=== PATIENT | male | born 1995 | race Caucasian/White ===

== ENCOUNTER 2018-07-28 08:53 | Emergency (ER) | payer OTHER ==
[2018-07-28 09:00] VITALS: BP 115/81
--- NOTE | 2018-07-28 11:58 | ED ---
Skin Complaint - HPI Summary HPI Summary: Patient is a 23-year-old otherwise healthy male presenting to the ED with tick bite. He endorses a tick bite to the posterior knee. He noticed the tick this morning. He states he was walking in [place], which is where this probably occurred, but did not notice this at the time. He has never had a tick bite and states he did not know how to remove this. He denies any pain. Ears small amount of erythema around the tick bite, no erythema migrans rash. No fevers, sweats, chills. - History of Current Complaint Chief Complaint: EDExtremityLower Time Seen by Provider: 07/28/18 09:15 Stated Complaint: TICK BEHIND KNEE PER PT Hx Obtained From: Patient Onset/Duration: Started Hours Ago Skin Exposure Onset/Duration: Hours Ago Timing: Constant Onset Severity: Mild Current Severity: None Pain Intensity: 0 Pain Scale Used: 0-10 Numeric Skin Location: Other: - right posteior knee Aggravating Symptom(s): Nothing Alleviating Symptom(s): Nothing Associated Signs & Symptoms: Negative Related History: Insect Bite/Sting - Allergy/Home Medications Allergies/Adverse Reactions: Allergies Allergy/AdvReac Type Severity Reaction Status Date / Time No Known Allergies Allergy Verified 07/28/18 09:00 Home Medications: Home Medications NK [No Home Medications Reported] 07/28/18 [History Confirmed 07/28/18] PMH/Surg Hx/FS Hx/Imm Hx Previously Healthy: Yes - Immunization History Hx Pertussis Vaccination: No Immunizations Up to Date: Yes Infectious Disease History: No Infectious Disease History: Denies: Traveled Outside the [place] in Last 30 Days - Social History Occupation: Employed Full-time Lives: With Family Alcohol Use: Occasionally Hx Substance Use: Yes Substance Use Type: Reports: Marijuana Hx Tobacco Use: No Smoking Status (MU): Never Smoked Tobacco Review of Systems Constitutional: Negative Negative: Fever, Chills, Fatigue, Skin Diaphoresis Negative: Blurred Vision, Diplopia Negative: Dental Pain Negative: Chest Pain Negative: Shortness Of Breath, Cough Negative: Myalgia Positive: Other - small tick to posterior knee Negative: Headache, Weakness Psychological: Normal All Other Systems Reviewed And Are Negative: Yes Physical Exam Triage Information Reviewed: Yes Vital Signs On Initial Exam: Initial Vitals Temp Pulse Resp BP Pulse Ox 97.8 F 61 15 115/81 98 07/28/18 08:56 07/28/18 08:56 07/28/18 08:56 07/28/18 08:56 07/28/18 08:56 Vital Signs Reviewed: Yes Appearance: Positive: No Pain Distress, Well-Nourished Skin: Positive: Skin Color Reflects Adequate Perfusion, Other - posterior knee tick attached Head/Face: Positive: Normal Head/Face Inspection Eyes: Positive: EOMI, Conjunctiva Clear Respiratory/Lung Sounds: Positive: Breath Sounds Present Cardiovascular: Positive: RRR Musculoskeletal: Positive: Strength/ROM Intact Neurological: Positive: Speech Normal AVPU Assessment: Alert Diagnostics - Vital Signs Vital Signs Temp Pulse Resp BP Pulse Ox 07/28/18 09:33 97.8 F 61 15 115/81 98 07/28/18 08:56 97.8 F 61 15 115/81 98 - Laboratory Lab Statement: Any lab studies that have been ordered have been reviewed, and results considered in the medical decision making process. Course/Dx - Course Course Of Treatment: Patient arrives with a tick bite to the right posterior leg. There is a small amount of erythema around the area. There is no erythema migrans. Denies any fevers, sweats, chills. Maggi dish soap with cottonball released tick. Nothing further at this time. Tick was not engorged and not attached for more than 36 hours. Prophylactic treatment is not recommended. - Diagnoses Provider Diagnoses: Tick bite Discharge - Sign-Out/Discharge Documenting (check all that apply): Patient Departure Patient Received Moderate/Deep Sedation with Procedure: No - Discharge Plan Condition: Stable Disposition: HOME Patient Education Materials: Tick Bite (ED) Referrals: No Primary Care Phys,NOPCP [Primary Care Provider] - Additional Instructions: Tick Bite: Approach to prophylaxis : According to the Infect[employer] Society of [place] (IDSA) guidelines that recommend antibiotic prophylaxis only in patients who meet all of the following criteria: 1. Attached tick identified as an adult or nymphal I. scapularis tick (deer tick). 2. Tick is estimated to have been attached for 36 hours (by degree of engorgement or time of exposure). 3. Prophylaxis is begun within 72 hours of tick removal. Local rate of infection of ticks with B. burgdorferi is 20 percent if attached for over 48 hours (these rates of infection have been shown to occur in parts of [place], parts of the [place], and parts of [place] and [place]). If you experience a tick and time of attachment is believed to be less than 36 hours, you may remove the tick with head intact and no need for prophylaxis. If over 36 hours, please come into UC or the ED. Prophylactic doxycycline is not recommended for ticks attached less than 36 hours or for those which are not engorged. - Billing Disposition and Condition Condition: STABLE Disposition: Home
== END 2018-07-28 09:33 | disposition home or self-care (01) ==
LOC: ED 08:53
DX: S80.261A Insect bite (nonvenomous), right knee, initial encounter (principal); W57.XXXA Bitten or stung by nonvenomous insect and other nonvenomous arthropods, initial encounter; Y92.9 Unspecified place or not applicable
CPT/HCPCS: 99282